=== PATIENT | male | born 1960 | race Caucasian/White ===

== ENCOUNTER 2021-03-26 09:29 | Outpatient (CLI) | payer BC ==
[2021-03-26 15:14] LABS: BASOPHILS % (AUTO) 0.6 %; EOSINOPHILS # (AUTO) 0.2 10^3/uL (0.0-0.7); EOSINOPHILS % (AUTO) 3.2 %; HCT - HEMATOCRIT 43.2 % (42.0-52.0); HGB - HEMOGLOBIN 14.5 g/dL (14.0-18.0); LYMPHOCYTES # (AUTO) 1.3 10^3/uL (1.5-3.5); LYMPHOCYTES % (AUTO) 25.5 %; MEAN CORPUSCULAR HEMOGLOBIN 31.5 pg (27.0-31.0); MEAN CORPUSCULAR HGB CONC 33.6 g/dL (32.0-36.0); MEAN CORPUSCULAR VOLUME 93.9 fL (80.0-94.0); MEAN PLATELET VOLUME 10.9 fL (7.4-11.4); MONOCYTES # (AUTO) 0.4 10^3/uL (0.0-1.0); MONOCYTES % (AUTO) 8.8 %; NEUTROPHILS # (AUTO) 3.1 10^3/uL (1.5-6.6); NEUTROPHILS % (AUTO) 61.7 %; PLT - PLATELET COUNT 208 10^3/uL (130-450); RED CELL DISTRIBUTION WIDTH 12.7 % (12.0-15.0)
[2021-03-26 16:05] LABS: ALBUMIN/GLOBULIN RATIO 2.1 (1.0-2.2); ALKALINE PHOSPHATASE 68 IU/L (42-121); ALT ALANINE AMINOTRANSFERASE 24 IU/L (10-60); AST ASPARTATE AMINOTRANSFERASE 29 IU/L (10-42); BILIRUBIN,TOTAL 1.2 mg/dL (0.2-1.0); BUN - BLOOD UREA NITROGEN 12 mg/dL (6-20); CALCIUM 9.8 mg/dL (8.5-10.3); CARBON DIOXIDE - CO2 29 mmol/L (21-32); CHLORIDE 103 mmol/L (101-111); CHOL/HDL RATIO 2.8 (<5.0); CHOLESTEROL 171 mg/dL; CREATININE 0.8 mg/dL (0.6-1.2); GFR - MDRD 98 (>89); GLUCOSE 101 mg/dL (70-100); HDL CHOLESTEROL 62 mg/dL; LDL CHOLESTEROL,CALCULATED 93 mg/dL; LDL/HDL RATIO 1.5 (<3.6); POTASSIUM 4.2 mmol/L (3.5-5.0); SODIUM 141 mmol/L (135-145); TOTAL PROTEIN 7.4 g/dL (6.7-8.2); TRIGLYCERIDES 80 mg/dL; VLDL CHOLESTEROL 16 mg/dL
== END 2021-03-26 09:30 | disposition home or self-care (01) ==
LOC: LAB.S 09:29
PROVIDERS: ATTEND Internal Medicine
DX: E78.5 Hyperlipidemia, unspecified (principal); Z12.5 Encounter for screening for malignant neoplasm of prostate
CPT/HCPCS: 36415; 80053; 80061; 83721; 84153; 85025

== ENCOUNTER 2022-05-17 22:12 | Outpatient (CLI) | payer BC | END 2022-05-17 22:13 | disposition critical access hospital (66) | LOC: EMS 22:12 | DX: M54.9 Dorsalgia, unspecified (principal) | CPT/HCPCS: A0425; A0429 ==

== ENCOUNTER 2022-05-17 22:35 | Emergency (ER) | payer BC ==
--- NOTE | 2022-05-17 23:07 | ED Physician Documentation ---
History of Present Illness - Stated complaint Stated Complaint: R FLANK PX - Chief complaint Chief Complaint: Back Pain - History obtained from History obtained from: Patient - Additonal information Additional information: 61yM p/w R lower back spasm after bending over for a long time cleaning a mini fridge today. nonradiating, sharp, intermittent, severe. denies numbness or weakness. twisting or movement makes it worse. patient does have a history of back spasm. Review of Systems Musculoskeletal: reports: Back pain PD PAST MEDICAL HISTORY - Past Medical History Past Medical History: Yes Cardiovascular: High cholesterol Respiratory: None Neuro: None Endocrine/Autoimmune: None GI: None : None HEENT: None Psych: None Musculoskeletal: None Derm: None - Past Surgical History Past Surgical History: Yes General: Other HEENT: Tonsil/Adenoidectomy - Allergies Allergies/Adverse Reactions: Allergies Allergy/AdvReac Type Severity Reaction Status Date / Time No Known Drug Allergies Allergy Verified 05/17/22 23:08 - Social History Does the pt smoke?: No Smoking Status: Never smoker Does the pt drink ETOH?: No Does the pt have substance abuse?: No - Immunizations Immunizations are current?: Yes - POLST Patient has POLST: No PD ED PE NORMAL - Vitals Vital signs reviewed: Yes - General General: Alert and oriented X 3, No acute distress, Well developed/nourished - HEENT HEENT: Atraumatic, PERRL, EOMI - Neck Neck: No bony TTP - Back Back: No CVA TTP, No spinal TTP, Other (R lower back ttp in muscle distribution) Results - Vitals Vitals: Vital Signs - 24 hr 05/17/22 05/17/22 22:44 23:19 Temperature 37.0 C Heart Rate 61 71 Respiratory 20 17 Rate Blood Pressure 121/85 H 112/69 O2 Saturation 97 97 Oxygen O2 Source Room air PD Medical Decision Making - ED course ED course: 61yM p/w muscle spasm, responsive to muscle relaxer. rx sent to pharmacy. return precautions given. f/u with pcp . Departure - Departure Disposition: 01 Home, Self Care Clinical Impression: Back pain Condition: Good Instructions: ED Low Back Pain Injury Comments: You were seen in the emergency department for back spasm. A paper prescription for Flexeril was provided. Please follow up with your primary care provider and return to the ED if you have new or worsening symptoms or other concerns. Discharge Date/Time: 05/17/22 23:44
[2022-05-17] MEDS: CYCLOBENZAPRINE 10 MG TABLET PO STA (23:14)
[2022-05-17] MEDS: MORPHINE 2 MG/ML CARPUJECT IM STA (23:16)
[2022-05-17 23:19] VITALS: BP 112/69
== END 2022-05-17 23:44 | disposition home or self-care (01) ==
LOC: EDUNIT# → ED 22:35
DX: M54.50 Low back pain, unspecified (principal)
CPT/HCPCS: 96372; 99281; 99283; A9270